=== PATIENT | female | born 2000 | race Caucasian/White ===

== ENCOUNTER 2025-05-08 13:54 | Emergency (ER) | payer BC, SELFPAY ==
[2025-05-08 14:01] VITALS: BP 141/75; PULSE 76; RESP 16; TEMP 36.9; O2SAT 100
--- NOTE | 2025-05-08 14:08 | ED_ITS ---
HPI - Skin/Abscess/Foreign Bdy General Chief complaint: Skin/Abscess/Foreign Body Stated complaint: CYST Time Seen by Provider: 05/08/25 14:12 Source: patient, RN notes reviewed and old records reviewed Mode of arrival: ambulatory Limitations: no limitations History of Present Illness HPI narrative: 24-year-old female presents to the [facility] with concerns of a cyst-like structure to the inner portion of the left labia majora. States that for several days it is was hard cyst, pop this morning and now is an open area. Has a history of herpes Denies concerns for STI his Related Data Allergies Allergy/AdvReac Type Severity Reaction Status Date / Time No Known Allergies Allergy Verified 05/08/25 14:11 Review of Systems 2 Review of Systems: All systems reviewed & are unremarkable except as noted in HPI and below Constitutional: Constitutional: Reports no additional constitutional complaints ENT: Reports system reviewed and no additional complaints, except as documented Cardiovascular: Cardiovascular: Reports no additional cardiovascular complaints, Denies chest pain and Denies dyspnea Respiratory: Respiratory: Reports no additional respiratory complaints, Denies chest congestion, Denies cough and Denies dyspnea Genitourinary: Genitourinary: Reports as per HPI Musculoskeletal: Musculoskeletal: Reports no additional musculoskeletal complaints Integumentary/Breasts: Skin/Breast: Reports system reviewed and no additional complaints, except as docu PMFSH Comments At the time of my signature, I reviewed and agree with the nursing past medical, surgical, social, and family history. There is no relevant family history pertinent to the patient complaint. Exam 2 Const: General: cooperative, healthy appearing, comfortable, no acute distress, well developed, alert and well nourished Nutritional Appearance: w ell nourished Orientation/consciousness: patient oriented x3 Limitations: no limitations HENMT: Head: normal to inspection Eyes: General: appearance normal, both eyes and all related structures A lignment and Position: alignment normal Neck: Neck: normal visual inspection, full ROM, no lymphadenopathy and no meningeal signs Chest: Chest palpation & inspection: normal inspection of the chest Resp: Effort & Inspection: normal respiratory effort and able to speak in complete sentences Cardio: Rate: regular rate : Other: Chaperoned by Addie MATTHEWS Female genitals images: 1. 0.5 cm left labia red area, no swelling. Tender Skin: General skin exam: normal color and no rashes or lesions noted Neuro: General: patient oriented x3, gait normal, moves all extremities and no meningeal signs Cognition (Neuro): normal cognition Speech: normal speech Gait exam (Neuro): Normal gait present Extrem: General: normal to inspection, full ROM, capillary refill normal and normal gait Psych: Appearance: grossly normal and well kempt Mental Status: mental status grossly normal Speech and movement: Normal speech and movement present and Clear speech present Affect: normal affect Attitude: cooperative Course Course Level of Care: Express Care Visit Vital Signs Vital signs: Vital Signs Temperature 98.5 F 05/08/25 14:01 Pulse Rate 76 05/08/25 14:01 Respiratory Rate 16 05/08/25 14:01 Blood Pressure 141/75 H 05/08/25 14:01 Pulse Oximetry 100 05/08/25 14:01 Oxygen Delivery Room Air 05/08/25 14:01 Temperature 98.5 F 05/08/25 14:01 Pulse Rate 76 05/08/25 14:01 Respiratory Rate 16 05/08/25 14:01 Blood Pressure 141/75 H 05/08/25 14:01 Pulse Oximetry 100 05/08/25 14:01 Oxygen Delivery Room Air 05/08/25 14:01 Reviewed MDM - Skin/Abscess/Foreign Bdy MDM Narrative Medical decision making narrative: Patient sitting in exam room. Nontoxic, vitals are stable. Patient with 1/2 cm lesion most likely herpetic to the labia. Will prescribe valacyclovir. Patient has an appointment with child protective services social worker on 24 May Patient appropriate for outpatient treatment with close follow-up Discharge instructions reviewed with patient, as well as provided in writing per nursing staff. The instructions also include specific and strict return/GO TO THE ER as well as f/u information. All questions have been answered, and the patient deny any further questions with discharge and discharge plan. Some parts of this dictation were generated by voice recognition software and may contain typographical and/or grammatical inaccuracies. Differential Diagnosis Differential diagnosis: Likely abscess of skin or subcutaneous tissue, cellulitis, impetigo and contact dermatitis Critical Care Time Critical Care Time Critical Care Time: No Discharge Plan Discharge Clinical Impression: Lesion of labia, History of herpes genitalis Patient Disposition: Home Condition: Stable Instructions: Genital Herpes Infection (ED) Patient Language: Hebrew Prescriptions: New valacyclovir 500 mg tablet 500 mg PO Q12H 5 Days Qty: 10 0RF Follow-up/Referrals: PHYSICIAN,TRANSPORTATION LEAD [Primary Care Provider] - Time of Disposition: 14:20
== END 2025-05-08 14:29 | disposition home or self-care (01) ==
PROVIDERS: Emergency Provider Nurse Practitioner
DX: N90.89 Other specified noninflammatory disorders of vulva and perineum (principal); A60.00 Herpesviral infection of urogenital system, unspecified
CPT/HCPCS: 99203; G0463